=== PATIENT | female | born 1955 | race Caucasian/White ===

== ENCOUNTER → 2017-12-14 | Outpatient (CLI) | payer OTHER ==
--- NOTE | 2017-12-17 10:28 | MM ---
Reason for exam: screening (asymptomatic). Last mammogram was performed 2 years and 9 months ago. History: Patient is postmenopausal. Family history of premenopausal breast cancer in sister and breast cancer in maternal aunt. Physical Findings: A clinical breast exam by your physician is recommended on an annual basis and results should be correlated with mammographic findings. MG Screening Mammo w CAD Bilateral CC and MLO view(s) were taken. Prior study comparison: March 08, 2015, bilateral MG screening mammo w CAD. October 07, 2012, bilateral digital screening mammo w/CAD. There are scattered fibroglandular densities. No suspicious abnormality. No significant changes when compared with prior studies. ASSESSMENT: Negative, BI-RAD 1 RECOMMENDATION: Routine screening mammogram of both breasts in 1 year.
== END | disposition home or self-care (01) ==
LOC: RADMAMWWP 08:43
PROVIDERS: ATTEND Family Medicine
DX: Z12.31 Encounter for screening mammogram for malignant neoplasm of breast (principal)
CPT/HCPCS: 77067

== ENCOUNTER → 2022-10-16 | Outpatient (CLI) | payer MEDICARE ==
--- NOTE | 2022-10-18 06:50 | US ---
EXAMINATION TYPE: US arterial LE single level DATE OF EXAM: 10/16/2022 1:01 PM CLINICAL HISTORY: M79.89, M79.671, M79.672 PAIN IN RT FOOT,PAIN IN LT FOOT. Bilateral foot pain. Both feet feel cold. History of: Smoker: Current Smoker Hypertension: No Diabetic: No Hyperlipidemia: No TIA/CVA: No Previous Vascular Surgery: No CAD: No VT: No Vascular Ulcers: No Claudication: Gangrene: No Doppler Waveforms: Right: Multiphasic Left: Multiphasic Pulse Volume Recording: Pressure Gradients: Right Brachial Pressure: 191 Left Brachial Pressure: 189 Ankle-Brachial Indices: Right: 1.05 Left: 1.07 Toe Brachial Indices: Right: 0.45 Left: 0.47 IMPRESSION: Bilateral diminished TBI consistent with at least mild peripheral arterial disease in th e bilateral feet. Further workup and follow-up advised.
== END | disposition home or self-care (01) ==
LOC: RADUSWWP 11:56
PROVIDERS: ATTEND Family Medicine
DX: M79.89 Other specified soft tissue disorders (principal); M79.671 Pain in right foot; M79.672 Pain in left foot
CPT/HCPCS: 93922

== ENCOUNTER → 2022-11-27 | Outpatient (CLI) | payer MEDICARE ==
--- NOTE | 2022-11-28 19:24 | MM ---
Reason for Exam: Screening (asymptomatic). Last mammogram was performed 4 year(s) and 11 month(s) ago. Patient History: Menarche at age 11. First Full-Term at age 17. Postmenopausal. Patient has history of breast feeding. Maternal aunt had breast cancer. Sister had breast cancer. Risk Values: Imani 5 year model risk: 3.2%. NCI Lifetime model risk: 10.1%. Prior Study Comparison: 10/07/2012 Bilateral Screening Mammogram, [facility]. 03/08/2015 Bilateral Screening Mammogram, [facility]. 12/14/2017 Bilateral Screening Mammogram, [facility]. Tissue Density: There are scattered fibroglandular densities. Findings: Analyzed By CAD. There is no suspicious group of microcalcifications or new suspicious mass in either breast. Overall Assessment: Benign, BI-RAD 2 Management: Screening Mammogram of both breasts in 1 year. See note regarding patient's elevated Imani score below. Patient should continue monthly self-breast exams. A clinical breast exam by your physician is recommended on an annual basis. This exam should not preclude additional follow-up of suspicious palpable abnormalities. Note on Imani scores and lifetime risk: 1. A Imani score greater than 3% is considered moderate risk. If this is the case, consider specialist referral to assess eligibility for a risk reducing agent. 2. If overall lifetime risk for the development of breast cancer is 20% or higher, the patient may qualify for future screening with alternating mammogram and breast MRI. Electronically signed and approved by: Alek Jo M.D. Radiologist
== END | disposition home or self-care (01) ==
LOC: RADMAMWWP 16:22
PROVIDERS: ATTEND Family Medicine
DX: Z12.31 Encounter for screening mammogram for malignant neoplasm of breast (principal); Z78.0 Asymptomatic menopausal state; Z80.3 Family history of malignant neoplasm of breast
CPT/HCPCS: 77063; 77067

== ENCOUNTER → 2022-12-07 | Outpatient (CLI) | payer MEDICARE ==
--- NOTE | 2022-12-07 12:48 | CTL ---
EXAMINATION TYPE: CT Low Dose Lung DATE OF EXAM: 12/07/2022 9:33 AM CLINICAL INDICATION:Female, 67 years old with history of Z87.891 PERSONAL HISTORY OF NICOTINE DEPENDE NCE; smoker , history of tobacco use. COMPARISON: None TECHNIQUE: Multiple axial non-contrast scans were obtained from approximately the lung apices through the upper abdomen. Coronal and sagittal reformatted images were obtained. Low dose technique was uti lized. CT DLP: 129.7 mGycm, Automated exposure control for dose reduction was used. CT Contrast: Contrast used: None Oral contrast used: None FINDINGS: ======== Lack of intravenous contrast and low dose technique limits the evaluation of the vascular and soft ti ssue structures. LUNGS: No evidence of pulmonary fibrosis. No evidence of focal consolidation, pneumothorax or pleural effusion. Azygous fissure noted. Mild centrilobular emphysema changes. Right posterior Bochdalek her jadon. Nodules: RUL: Subpleural nodule 4 mm image 55 series 3. 2 mm image 65. 2 mm image 115. RML: None. RLL: 2 mm image 1 08/17/2013 series 3 YESICA: 4 mm image 112 series 3. Suspected right intrafissural lymph node versus scarring series 3 i mage 80. Intrafissural lymph node also present on image 179 LLL: None. AIRWAY: Patent and unremarkable. HEART: Size within normal limits. Coronary artery atherosclerosis. MEDIASTINUM: No gross evidence of adenopathy. VASCULATURE: No aortic aneurysm. Atherosclerosis of the arterial vasculature. MUSCULOSKELETAL: Mild disc degeneration changes are present throughout the thoracolumbar spine. SOFT TISSUES/LYMPH NODES: Unremarkable. LOWER NECK: No significant findings. UPPER ABDOMEN: Cholecystectomy clips are present.. IMPRESSION: 1. No clinically significant pulmonary nodules. 2. Mild emphysema changes. CT LUNG RAD AND CT CHEST RECOMMENDATION: Lung-Rad 2 Benign Appearance or Behavior: Continue annual sc reening with LDCT in 12 months. S Modifier (other clinically significant findings): None Recommend smoking cessation (if current smoker), or continuation of smoking cessation (if prior smoke r). Annual screening for lung cancer with low-dose computed tomography is recommended in adults ages 55 to 77 years who have a 30 pack-year smoking history and currently smoke or have quit within the pa st 15 years. Screening should be discontinued once a person has not smoked for 15 years or develops a health problem that substantially limits life expectancy or the ability or willingness to have curat olga lung surgery. Lung rads 2021 [email or web address]
== END | disposition home or self-care (01) ==
LOC: RADCTMAIN 09:15
PROVIDERS: ATTEND Family Medicine
DX: Z12.2 Encounter for screening for malignant neoplasm of respiratory organs (principal); J43.9 Emphysema, unspecified; F17.210 Nicotine dependence, cigarettes, uncomplicated
CPT/HCPCS: 71271

== ENCOUNTER 2023-02-22 15:45 | Observation (INO) | payer MEDICARE ==
[2023-02-22] MEDS ORDERED: ASPIRIN 81 MG PO STA (16:09)
[2023-02-22] MEDS ORDERED: NITROGLYCERIN OINT 1 INCH/GM PACKET TOPICAL STA (16:09)
--- NOTE | 2023-02-22 16:12 | ED ---
General Adult HPI - General Chief complaint: Chest Pain Stated complaint: Chest Pain over 24hrs, Swollen Hands Time Seen by Provider: 02/22/23 15:55 Source: patient, RN notes reviewed, old records reviewed Mode of arrival: wheelchair Limitations: no limitations - History of Present Illness Initial comments: This is a 67-year-old female presents emergency Department complaining that last night she had pain in her arm and also pain or left middle finger. Patient states today she decided come into the hospital because of the pain in her finger and arm and then she started experiencing significant chest pain that she describes as a heaviness. Patient states associated with that was shortness of breath particularly when she tried to walk into the ER. Patient denies any diaphoretic episodes patient denies any nausea. Patient denies any abdominal pain patient denies any vomiting or diarrhea recently. Patient denies any headache patient denies numbness weakness. Patient denies any lightheadedness or dizziness - Related Data Home Medications Medication Instructions Recorded Confirmed Acetaminophen Tab [Tylenol Tab] 500 mg PO BID 02/22/23 02/22/23 Atorvastatin [Lipitor] 10 mg PO HS 02/22/23 02/22/23 Ibuprofen [Motrin Ib] 200 mg PO BID 02/22/23 02/22/23 diphenhydrAMINE [Benadryl] 25 mg PO BID 02/22/23 02/22/23 Allergies Allergy/AdvReac Type Severity Reaction Status Date / Time No Known Allergies Allergy Verified 02/22/23 16:47 Review of Systems ROS Statement: Those systems with pertinent positive or pertinent negative responses have been documented in the HPI. ROS Other: All systems not noted in ROS Statement are negative. Past Medical History Past Medical History: Hyperlipidemia History of Any Multi-Drug Resistant Organisms: None Reported Past Surgical History: Section, Cholecystectomy Additional Past Surgical History / Comment(s): rt adrenal gland Past Psychological History: No Psychological Hx Reported Smoking Status: Current every day smoker Past Alcohol Use History: None Reported Past Drug Use History: None Reported General Exam - General Exam Comments Initial Comments: GENERAL: Patient is well-developed and well-nourished. Patient is nontoxic and well- hydrated and is in mild distress. ENT: Neck is soft and supple. No significant lymphadenopathy is noted. Oropharynx is clear. Moist mucous membranes. Neck has full range of motion without eliciting any pain. EYES: The sclera were anicteric and conjunctiva were pink and moist. Extraocular movements were intact and pupils were equal round and reactive to light. Eyelids were unremarkable. PULMONARY: Unlabored respirations. Good breath sounds bilaterally. No audible rales rhonchi or wheezing was noted. CARDIOVASCULAR: There is a regular rate and rhythm without any murmurs gallops or rubs. ABDOMEN: Soft and nontender with normal bowel sounds. SKIN: Skin is clear with no lesions or rashes and otherwise unremarkable. NEUROLOGIC: Patient is alert and oriented x3. Cranial nerves II through XII are grossly intact. Motor and sensory are also intact. Normal speech, volume and content. Symmetrical smile. MUSCULOSKELETAL: Normal extremities with adequate strength and full range of motion. Patient has tenderness in the PIP joint of the third finger on the left hand and is mildly erythematous LYMPHATICS: No significant lymphadenopathy is noted PSYCHIATRIC: Normal psychiatric evaluation. Limitations: no limitations Course Vital Signs 02/22/23 02/22/23 15:48 18:27 Temperature 98.7 F Pulse Rate 94 88 Respiratory 20 20 Rate Blood Pressure 159/74 113/73 O2 Sat by Pulse 95 94 L Oximetry Medical Decision Making - Medical Decision Making EKG is interpreted by myself. EKG shows sinus rhythm at 83 bpm GA interval 261 66 QT interval 340 QTC is 383. Patient's EKG shows no ST segment elevation or depression. Was pt. sent in by a medical professional or institution ([facility]dy, REPL[employer]ISHMENT BU[employer]ER, urgent care, hospital, or skilled nursing...) When possible be specific @ -No Did you speak to anyone other than the patient for history (EMS, parent, family, police, friend...)? What history was obtained from this source @ -No Did you review nursing and triage notes (agree or disagree)? Why? @ -I reviewed and agree with nursing and triage notes Were old charts reviewed (outside hosp., previous admission, EMS record, old EKG, old radiological studies, urgent care reports/EKG's, skilled nursing records)? Report findings @ -I reviewed prior labs in prior charts Differential Diagnosis (chest pain, altered mental status, abdominal pain women, abdominal pain men, vaginal bleeding, weakness, fever, dyspnea, syncope, headache, dizziness, GI bleed, back pain, seizure, CVA, palpatations, mental health, musculoskeletal)? @ -Differential Chest Pain: Stable Angina, Unstable Angina, STEMI, NSTEMI Aortic Dissection, Pneumothorax, Musculoskeletal, Esophageal Spasm GERD, Cholecystitis, Pancreatitis, Zoster, this is not meant to be an all-inclusive list. EKG interpreted by me (3pts min.). @ -As above X-rays interpreted by me (1pt min.). @ -Chest x-ray shows no acute abnormality CT interpreted by me (1pt min.). @ -None done U/S interpreted by me (1pt. min.). @ -None done What testing was considered but not performed or refused? (CT, X-rays, U/S, labs)? Why? @ -None What meds were considered but not given or refused? Why? @ -None Did you discuss the management of the patient with other professionals ( professionals i.e. , PA, REPLENISHMENT BUYER, lab, RT, psych nurse, social director, cio, teacher, ground intelligence officer, case management coordinator)? Give summary @ -Dr. joseph accept the patient Was smoking cessation discussed for >3mins.? @ -No Was critical care preformed (if so, how long)? @ -No Were there social determinants of health that impacted care today? How? (Homelessness, low income, unemployed, alcoholism, drug addiction, transportation, low edu. Level, literacy, decrease access to med. care, fdc, rehab)? @ -No Was there de-escalation of care discussed even if they declined (Discuss DNR or withdrawal of care, Hospice)? DNR status @ -No What co-morbidities impacted this encounter? (DM, HTN, Smoking, COPD, CAD, Cancer, CVA, ARF, Chemo, Hep., AIDS, mental health diagnosis, sleep apnea, morbid obesity)? @ -None Was patient admitted / discharged? Hospital course, mention meds given and route, prescriptions, significant lab abnormalities, going to OR and other pertinent info. @ -Patient remained chest pain-free throughout her ED course labs are normal x- ray was normal I spoke with Dr. joseph he agreed to accept the patient I admitted the patient I consult cardiology I wrote admitting orders Undiagnosed new problem with uncertain prognosis? @ -No Drug Therapy requiring intensive monitoring for toxicity (Heparin, Nitro, Insulin, Cardizem)? @ -No Were any procedures done? @ -No Diagnosis/symptom? @ -Chest pain Acute, or Chronic, or Acute on Chronic? @ -Acute Uncomplicated (without systemic symptoms) or Complicated (systemic symptoms)? @ -Complicated Side effects of treatment? @ -No Exacerbation, Progression, or Severe Exacerbation? @ -No Poses a threat to life or bodily function? How? (Chest pain, [place], [place], pneumonia, PE, COPD, DKA, ARF, appy, cholecystitis, CVA, Diverticulitis, Homicidal, Suicidal, threat to staff... and all critical care pts) @ -Yes this could lead to end organ dysfunction and possibly - Lab Data Result diagrams: 02/22/23 16:21 02/22/23 16:21 Lab Results 02/22/23 02/22/23 02/22/23 Range/Units 16:21 16:21 16:21 WBC 10.8 H (3.8-10.6) k/uL RBC 4.33 (3.80-5.40) m/uL Hgb 14.5 (11.4-16.0) gm/dL Hct 41.6 (34.0-46.0) % MCV 96.0 (80.0-100.0) fL MCH 33.5 (25.0-35.0) pg MCHC 34.9 (31.0-37.0) g/dL RDW 12.5 (11.5-15.5) % Plt Count 147 L (150-450) k/uL MPV 8.6 Neutrophils % 80 % Lymphocytes % 12 % Monocytes % 6 % Eosinophils % 1 % Basophils % 0 % Neutrophils # 8.6 H (1.3-7.7) k/uL Lymphocytes # 1.3 (1.0-4.8) k/uL Monocytes # 0.6 (0-1.0) k/uL Eosinophils # 0.1 (0-0.7) k/uL Basophils # 0.0 (0-0.2) k/uL PT 9.9 (9.0-12.0) sec INR 0.9 (<1.2) APTT 22.4 (22.0-30.0) sec Sodium 134 L (137-145) mmol/L Potassium 4.2 (3.5-5.1) mmol/L Chloride 101 (98-107) mmol/L Carbon Dioxide 25 (22-30) mmol/L Anion Gap 8 mmol/L BUN 8 (7-17) mg/dL Creatinine 0.70 (0.52-1.04) mg/dL Est GFR (CKD-EPI)AfAm >90 (>60 ml/min/1.73 sqM) Est GFR (CKD-EPI)NonAf 89 (>60 ml/min/1.73 sqM) Glucose 109 H (74-99) mg/dL Calcium 9.2 (8.4-10.2) mg/dL Magnesium 2.0 (1.6-2.3) mg/dL Total Bilirubin 0.8 (0.2-1.3) mg/dL AST 24 (14-36) U/L ALT 24 (4-34) U/L Alkaline Phosphatase 100 (38-126) U/L Troponin I (0.000-0.034) ng/mL Total Protein 6.7 (6.3-8.2) g/dL Albumin 3.9 (3.5-5.0) g/dL 02/22/23 Range/Units 16:21 WBC (3.8-10.6) k/uL RBC (3.80-5.40) m/uL Hgb (11.4-16.0) gm/dL Hct (34.0-46.0) % MCV (80.0-100.0) fL MCH (25.0-35.0) pg MCHC (31.0-37.0) g/dL RDW (11.5-15.5) % Plt Count (150-450) k/uL MPV Neutrophils % % Lymphocytes % % Monocytes % % Eosinophils % % Basophils % % Neutrophils # (1.3-7.7) k/uL Lymphocytes # (1.0-4.8) k/uL Monocytes # (0-1.0) k/uL Eosinophils # (0-0.7) k/uL Basophils # (0-0.2) k/uL PT (9.0-12.0) sec INR (<1.2) APTT (22.0-30.0) sec Sodium (137-145) mmol/L Potassium (3.5-5.1) mmol/L Chloride (98-107) mmol/L Carbon Dioxide (22-30) mmol/L Anion Gap mmol/L BUN (7-17) mg/dL Creatinine (0.52-1.04) mg/dL Est GFR (CKD-EPI)AfAm (>60 ml/min/1.73 sqM) Est GFR (CKD-EPI)NonAf (>60 ml/min/1.73 sqM) Glucose (74-99) mg/dL Calcium (8.4-10.2) mg/dL Magnesium (1.6-2.3) mg/dL Total Bilirubin (0.2-1.3) mg/dL AST (14-36) U/L ALT (4-34) U/L Alkaline Phosphatase (38-126) U/L Troponin I <0.012 (0.000-0.034) ng/mL Total Protein (6.3-8.2) g/dL Albumin (3.5-5.0) g/dL Disposition Clinical Impression: Chest pain Disposition: ADMITTED IP TO THIS HOSP Referrals: Charley Hines MD [Primary Care Provider] - 1-2 days Time of Disposition: 18:46
[2023-02-22 16:36] LABS: Basophils % (A) 0 %; Eosinophils # (A) 0.1 k/uL (0-0.7); Eosinophils % (A) 1 %; HCT 41.6 % (34.0-46.0); HGB 14.5 gm/dL (11.4-16.0); Lymphocytes # (A) 1.3 k/uL (1.0-4.8); Lymphocytes % (A) 12 %; MCH 33.5 pg (25.0-35.0); MCHC 34.9 g/dL (31.0-37.0); Mean Platelet Volume 8.6; Monocytes # (A) 0.6 k/uL (0-1.0); Monocytes % (A) 6 %; Neutrophils # (A) 8.6 k/uL (1.3-7.7); Neutrophils % (A) 80 %; Platelet Count 147 k/uL (150-450); RBC 4.33 m/uL (3.80-5.40); RDW 12.5 % (11.5-15.5); WBC 10.8 k/uL (3.8-10.6)
[2023-02-22 16:51] LABS: ALT 24 U/L (4-34); AST 24 U/L (14-36); African American GFR (CKD) >90 (>60 ml/min/1.73 sqM); Albumin 3.9 g/dL (3.5-5.0); Alkaline Phosphatase 100 U/L (38-126); Anion Gap 8 mmol/L; Blood Urea Nitrogen 8 mg/dL (7-17); Calcium 9.2 mg/dL (8.4-10.2); Carbon Dioxide 25 mmol/L (22-30); Chloride 101 mmol/L (98-107); Glucose 109 mg/dL (74-99); Non-African American GFR(CKD) 89 (>60 ml/min/1.73 sqM); Potassium 4.2 mmol/L (3.5-5.1); Sodium 134 mmol/L (137-145); Total Bilirubin 0.8 mg/dL (0.2-1.3); Total Protein 6.7 g/dL (6.3-8.2)
[2023-02-22 17:01] LABS: INR 0.9 (<1.2); Partial Thromboplastin Time 22.4 sec (22.0-30.0); Prothrombin Time 9.9 sec (9.0-12.0)
--- NOTE | 2023-02-22 17:12 | XR ---
EXAMINATION TYPE: XR chest 2V DATE OF EXAM: 02/22/2023 COMPARISON: 07/26/2013 INDICATION: Chest pain TECHNIQUE: Frontal and lateral views of the chest are obtained. FINDINGS: The heart size is normal. The pulmonary vasculature is normal. The lungs are clear. IMPRESSION: 1. No acute pulmonary process.
[2023-02-22] MEDS ORDERED: NITROGLYCERIN SL TABS 0.4 MG TAB SUBLINGUAL PRN (18:46)
[2023-02-22] MEDS ORDERED: diphenhydrAMINE 25 MG CAP PO PRN (19:00)
[2023-02-22] MEDS ORDERED: ACETAMINOPHEN TAB 500 MG TAB PO PRN (19:00)
[2023-02-22] MEDS: HEPARIN SODIUM,PORCINE 5,000 UNIT/ML 1 ML VIAL SQ SCH (20:46)
[2023-02-22] MEDS: FAMOTIDINE 20 MG/2 ML VIAL IV SCH (20:46)
[2023-02-22 20:58] VITALS: RESP 17
[2023-02-22] MEDS ORDERED: ATORVASTATIN 10 MG TAB PO SCH (21:00)
[2023-02-23] MEDS: NITROGLYCERIN OINT 1 INCH/GM PACKET TOPICAL SCH ×2 (01:11→06:13)
[2023-02-23] MEDS: HEPARIN SODIUM,PORCINE 5,000 UNIT/ML 1 ML VIAL SQ SCH (07:53)
[2023-02-23] MEDS: FAMOTIDINE 20 MG/2 ML VIAL IV SCH (07:53)
[2023-02-23 08:43] LABS: Chol/HDL Ratio 2.75 Ratio; LDL Cholesterol,Calculated 85.1 mg/dL (0.0-131.0)
[2023-02-23] MEDS ORDERED: ASPIRIN 325 MG TAB PO SCH (09:00)
--- NOTE | 2023-02-23 10:30 | P.CRDCN ---
History of Present Illness History of present illness: HISTORY OF PRESENT ILLNESS: This is a 67-year-old female with a past medical history significant for hyperlipidemia. 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 We have been asked to see the patient in consultation for chest pain. Patient examined at the bedside. patient states she has been having swelling and throbbing in her hands and fingers for the past 2 days. She states she is having trouble opening up a bottle or a lid. She states she called her primary care physician who directed her to come to the emergency room. She states while she was driving here she began to have chest pain and shortness of breath. She states her symptoms were intermittent. When she came to the emergency room she was given nitro with relief of her symptoms. She states she has had no further episodes of chest pain or pressure. She currently denies shortness of breath. Vital signs are stable. * EKG reveals sinus mechanism with no signs of acute ischemia * Chest xray negative for acute process * Laboratory data: WBC 10.8. Hemoglobin 14.5. platelet count 147. Sodium 134. Potassium 4.3. BUN 8. Creatinine 0.70. Troponin negative 3 * Current home cardiac medications include atorvastatin 10 mg at night REVIEW OF SYSTEMS: At the time of my exam: CONSTITUTIONAL: Denies fever or chills. HEENT: Denies blurred vision, vision changes, or eye pain. Denies hemoptysis CARDIOVASCULAR: Denies chest pain. Denies orthopnea. Denies PND. Denies palpitations RESPIRATORY: Denies shortness of breath. GASTROINTESTINAL: Denies abdominal pain. Denies nausea or vomiting. HEMATOLOGIC: Denies bleeding disorders. GENITOURINARY: Denies any blood in urine. SKIN: Denies pruitis. Denies rash. PHYSICAL EXAM: VITAL SIGNS: Reviewed. GENERAL: Well-developed in no acute distress. HEENT: Head is normocephalic. Pupils are equal, round. Sclerae anicteric. Mucous membranes of the mouth are moist. Neck supple. No JVD or thyromegaly LUNGS: Respirations even and unlabored. Lungs essentially clear to auscultation bilaterally. HEART: Regular rate and rhythm. S1 and S2 heard. ABDOMEN: Soft. Nondistended. Nontender. EXTREMITIES: Normal range of motion. No clubbing or cyanosis. Peripheral pulses intact. No lower extremity edema NEUROLOGIC: Awake and alert. Oriented x 3. ASSESSMENT: Swelling and throbbing of bilateral hands and fingers, 2 days Chest pain, troponins negative 3 Hyperlipidemia PLAN: An acute coronary event has been ruled out Increase atorvastatin to 20 mg at night Add aspirin 81 mg daily Obtain 2-D echo to assess cardiac structure and function 2-D echo does not reveal any significant abnormalities, patient may be discharged home today from a cardiac standpoint Nurse practitioner note has been reviewed by physician. Signing provider agrees with the documented findings, assessment, and plan of care. 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" History of Any Multi-Drug Resistant Organisms: None Reported Past Surgical History: Section, Cholecystectomy Additional Past Surgical History / Comment(s): rt adrenal gland removal Past Anesthesia/Blood Transfusion Reactions: No Reported Reaction Past Psychological History: No Psychological Hx Reported Smoking Status: Current every day smoker Past Alcohol Use History: None Reported Past Drug Use History: None Reported Medications and Allergies Home Medications Medication Instructions Recorded Confirmed Type Acetaminophen Tab [Tylenol Tab] 500 mg PO BID 02/22/23 02/22/23 History Atorvastatin [Lipitor] 10 mg PO HS 02/22/23 02/22/23 History Ibuprofen [Motrin Ib] 200 mg PO BID 02/22/23 02/22/23 History diphenhydrAMINE [Benadryl] 25 mg PO BID 02/22/23 02/22/23 History Allergies Allergy/AdvReac Type Severity Reaction Status Date / Time No Known Allergies Allergy Verified 02/22/23 16:47 Physical Exam Vitals: Vital Signs Temp Pulse Pulse Resp BP BP Pulse Ox 02/23/23 07:50 97.9 F 82 17 112/69 95 02/23/23 03:46 98.3 F 83 17 140/65 95 02/23/23 02:00 83 02/23/23 00:09 97.9 F 84 17 135/63 96 02/22/23 22:37 84 02/22/23 20:57 98.5 F 84 17 125/56 98 02/22/23 20:05 98.2 F 69 16 124/68 98 02/22/23 18:27 88 20 113/73 94 L 02/22/23 15:48 98.7 F 94 20 159/74 95 Intake and Output 02/22/23 02/23/23 02/23/23 22:59 06:59 14:59 Other: Voiding Method Toilet Toilet Toilet # Voids 1 2 Weight 102.058 kg 101.6 kg Results 02/22/23 16:21 02/22/23 16:21 Cardiac Enzymes 02/22/23 02/22/23 02/22/23 Range/Units 16:21 16:21 19:06 AST 24 (14-36) U/L Troponin I <0.012 <0.012 (0.000-0.034) ng/mL 02/22/23 Range/Units 22:35 AST (14-36) U/L Troponin I <0.012 (0.000-0.034) ng/mL Coagulation 02/22/23 Range/Units 16:21 PT 9.9 (9.0-12.0) sec APTT 22.4 (22.0-30.0) sec Lipids 02/22/23 Range/Units 16:21 Triglycerides 86.50 (0.00-149.00) mg/dL Cholesterol 161.00 (0.00-200.00) mg/dL HDL Cholesterol 58.60 (40.00-60.00) mg/dL Cholesterol/HDL Ratio 2.75 Ratio CBC 02/22/23 Range/Units 16:21 WBC 10.8 H (3.8-10.6) k/uL RBC 4.33 (3.80-5.40) m/uL Hgb 14.5 (11.4-16.0) gm/dL Hct 41.6 (34.0-46.0) % Plt Count 147 L (150-450) k/uL Comprehensive Metabolic Panel 02/22/23 Range/Units 16:21 Sodium 134 L (137-145) mmol/L Potassium 4.2 (3.5-5.1) mmol/L Chloride 101 (98-107) mmol/L Carbon Dioxide 25 (22-30) mmol/L BUN 8 (7-17) mg/dL Creatinine 0.70 (0.52-1.04) mg/dL Glucose 109 H (74-99) mg/dL Calcium 9.2 (8.4-10.2) mg/dL AST 24 (14-36) U/L ALT 24 (4-34) U/L Alkaline Phosphatase 100 (38-126) U/L Total Protein 6.7 (6.3-8.2) g/dL Albumin 3.9 (3.5-5.0) g/dL Current Medications Generic Name Dose Route Start Last Admin Trade Name Marquisq PRN Reason Stop Dose Admin Acetaminophen 500 mg 02/22/23 19:00 Acetaminophen Tab 500 Mg Tab PO BID PRN Pain Aspirin 325 mg 02/23/23 09:00 02/23/23 07:53 Aspirin 325 Mg Tab PO 325 mg DAILY JUSTO Administration Atorvastatin Calcium 10 mg 02/22/23 21:00 02/22/23 20:46 Atorvastatin 10 Mg Tab PO 10 mg HS JUSTO Administration Diphenhydramine HCl 25 mg 02/22/23 19:00 Diphenhydramine 25 Mg Cap PO BID PRN Itching Famotidine 20 mg 02/22/23 21:00 02/23/23 07:53 Famotidine 20 Mg/2 Ml Vial IV 20 mg Q12HR JUSTO Administration Heparin Sodium (Porcine) 5,000 unit 02/22/23 21:00 02/23/23 07:53 Heparin Sodium,Porcine 5,000 Unit/Ml 1 Ml Vial SQ Not Given Q12HR [facility] Nitroglycerin 0.4 mg 02/22/23 18:46 Nitroglycerin Sl Tabs 0.4 Mg Tab SUBLINGUAL Q5M PRN Chest Pain Nitroglycerin 1 inch 02/23/23 00:00 02/23/23 06:13 Nitroglycerin Oint 1 Inch/Gm Packet TOPICAL Not Given Q6HR [facility] Intake and Output 02/22/23 02/23/23 02/23/23 22:59 06:59 14:59 Other: Voiding Method Toilet Toilet Toilet # Voids 1 2 Weight 102.058 kg 101.6 kg 02/22/23 16:21 02/22/23 16:21
--- NOTE | 2023-02-23 11:29 | CA ---
Transthoracic Echo Report Name: Nory Lewis Age: 67 Gender: F : 1955 Exam Date: 02/23/2023 10:32 Exam Location: [facility] Ht (in): 64 Wt (lb): 223 Ordering Physician: Michelle Benitez Attending/Referring Phys: [id number], Eli Change Manager Nasrin Brantley RDCS Procedure CPT: Indications: LV function, CP Cardiac Hx: Technical Quality: Good Contrast 1: Total Dose (mL): Contrast 2: Total Dose (mL): MEASUREMENTS (Male / Female) Normal Values 2D ECHO LV Diastolic Diameter PLAX 4.3 cm 4.2 - 5.9 / 3.9 - 5.3 cm LV Systolic Diameter PLAX 2.7 cm IVS Diastolic Thickness 1.0 cm 0.6 - 1.0 / 0.6 - 0.9 cm LVPW Diastolic Thickness 1.0 cm 0.6 - 1.0 / 0.6 - 0.9 cm LV Relative Wall Thickness 0.5 RV Internal Dim ED PLAX 2.8 cm LA Systolic Diameter LX 3.4 cm 3.0 - 4.0 / 2.7 - 3.8 cm LV Diastolic Volume MOD 4C 76.7 cm??? LV Systolic Volume MOD 4C 26.2 cm??? LV Ejection Fraction MOD 4C 65.8 % LV Cardiac Index MOD 4C 1639.1 cm???/min???m??? LV Diastolic Length 4C 8.0 cm LV Systolic Length 4C 5.8 cm LV Diastolic Volume MOD 2C 89.6 cm??? LV Systolic Volume MOD 2C 21.9 cm??? LV Ejection Fraction MOD 2C 75.6 % LV Cardiac Index MOD 2C 2200.0 cm???/min???m??? LV Diastolic Length 2C 8.3 cm LV Systolic Length 2C 6.3 cm LA Volume 43.3 cm??? 18 - 58 / 22 - 52 cm??? M-MODE Aortic Root Diameter MM 3.5 cm MV E Point Septal Separation 0.4 cm AV Cusp Separation MM 2.0 cm DOPPLER AV Peak Velocity 147.4 cm/s AV Peak Gradient 8.7 mmHg MV Area PHT 2.8 cm??? Mitral E Point Velocity 109.5 cm/s Mitral A Point Velocity 111.1 cm/s Mitral E to A Ratio 1.0 MV Deceleration Time 275.2 ms MV E' Velocity 6.7 cm/s Mitral E to MV E' Ratio 16.3 TR Peak Velocity 265.6 cm/s TR Peak Gradient 28.2 mmHg Right Ventricular Systolic Press 33.2 mmHg FINDINGS Left Ventricle Left ventricular ejection fraction is estimated at 55-60 %. Left ventricular cavity size normal. Mildly increased posterior wall thickness. Right Ventricle Mild right ventricular dilatation. Right ventricular systolic pressure within normal limits. Right Atrium Normal right atrial size. Left Atrium Normal left atrial size. Mitral Valve Structurally normal mitral valve. No mitral stenosis, regurgitation or prolapse. Aortic Valve Trileaflet aortic valve. No aortic valve stenosis or regurgitation. Tricuspid Valve Structurally normal tricuspid valve. Mild tricuspid regurgitation. Pulmonic Valve Pulmonic valve not well visualized. Pericardium Normal pericardium. No pericardial effusion. Aorta Normal size aortic root and proximal ascending aorta. CONCLUSIONS Previewed by: Dr. Jay Hermosillo MD (Electronically Signed) Final Date: 23 February 2023 11:28
[2023-02-23 12:14] VITALS: BP 139/78; PULSE 87; TEMP 98.6
[2023-02-23] MEDS ORDERED: methylPREDNISolone SOD SUCCIN 40 MG in SODIUM CHLORIDE 0.9% 100 ML IVPB STA (13:25)
[2023-02-23] MEDS: methylPREDNISolone SOD SUCCI 40 MG/ML 1 ML VIAL IV STA ×2 (13:31→13:45)
--- NOTE | 2023-02-23 15:21 | CT ---
EXAMINATION TYPE: CT chest angio for PE DATE OF EXAM: 02/23/2023 COMPARISON: 12/07/2022 HISTORY: 67-year-old female shortness of breath, dyspnea, FAN TECHNIQUE: Contiguous axial scanning of the chest performed with IV Contrast, patient injected with 1 00 mL of Isovue 370. Coronal/sagittal MIP reconstructions performed. CT DLP: 489.7 mGycm Automated exposure control for dose reduction was used. FINDINGS: Heart normal size without pericardial effusion. No reflux of contrast into the hepatic veins. Portable and ectasia ascending aorta 3.6 cm. Mild atherosclerotic changes aortic arch with convention al arch vessel branching anatomy. Mild to moderate atherosclerotic plaque and calcification descendin g thoracic aorta. No thoracic lymphadenopathy by CT size criteria. There is breathing motion artifact limiting the evaluation. No definite pulmonary embolus is seen tho ugh some of the segmental and more distal arterial branches are very limited. Normal variant azygous fissure. Stable 7 mm nodule along the posterior left upper lung along the major fissure suggestive of an intra fissural lymph node. Mild diffuse bronchial wall thickening. No consolidation or pleural effusion. Borderline fusiform aneurysm infrarenal abdominal aorta up to 3.0 cm. Cholecystectomy clips. Bones: Moderate degenerative disc disease mid thoracic spine. IMPRESSION: 1. BREATHING MOTION ARTIFACT LIMITING THE ASSESSMENT FOR PULMONARY PLUS. NO DEFINITE PULMONARY EMBOLU S IS SEEN. 2. BRONCHIAL WALL THICKENING SUGGESTS BRONCHITIS OR CHRONIC ASTHMA. 3. INCIDENTAL: BORDERLINE INFRARENAL ABDOMINAL AORTIC ANEURYSM AT 3.0 CM. APPROPRIATE CLINICAL FOLLOW -UP RECOMMENDED.
--- NOTE | 2023-02-23 15:29 | P.HPIM ---
History of Present Illness H&P Date: 02/23/23 History of present illness; patient is 67-year-old lady with past medical histor y significant for hyperlipidemia presented the ER because of chest pain. Patient stated that she was all right yesterday which started noticing pain in her left arm and left middle finger. That pain was followed by chest pain that was central in location, felt like heaviness, no aggravating or relieving factors associated with this chest pain. Patient was complaining of shortness of breath on exertion, especially on walking. Because of this chest pain or shortness of breath, patient became concerned and came to come to the ER. Denies any palpitations. Denies orthopnea or PND. Denies swelling of feet. Initial lab work done in the ER showed WBC 10.8, hemoglobin 14.5, platelet count 147, sodium 134, potassium 4.2, BUN 8, creatinine 0.70, troponin 0.012. Cholesterol 161, LDL 81 EKG done in the ER showed ventricle rate of 83, no ST segment elevation or T- wave inversion seen. Chest x-ray done in the ER no acute cardiac process Patient admitted to medicine service REVIEW OF SYSTEMS: CONSTITUTIONAL: No fever, no malaise, no fatigue. HEENT: No recent visual problems or hearing problems. Denied any sore throat. CARDIOVASCULAR: As mentioned in HPI PULMONARY: As mentioned in HPI GASTROINTESTINAL: No diarrhea, no nausea, no vomiting, no abdominal pain. NEUROLOGICAL: No headaches, no weakness, no numbness. HEMATOLOGICAL: Denies any bleeding or petechiae. GENITOURINARY: Denies any burning micturition, frequency, or urgency. MUSCULOSKELETAL/RHEUMATOLOGICAL: Left wrist pain ENDOCRINE: Denies any polyuria or polydipsia. The rest of the 14-point review of systems is negative. PHYSICAL EXAMINATION: GENERAL: The patient is alert and oriented x3, not in any acute distress. Well developed, well nourished. HEENT: Pupils are round and equally reacting to light. EOMI. No scleral icterus. No conjunctival pallor. Normocephalic, atraumatic. No pharyngeal erythema. No thyromegaly. CARDIOVASCULAR: S1 and S2 present. No murmurs, rubs, or gallops. PULMONARY: Chest is clear to auscultation, no wheezing or crackles. ABDOMEN: Soft, nontender, nondistended, normoactive bowel sounds. No palpable organomegaly. MUSCULOSKELETAL: Left wrist swelling EXTREMITIES: No cyanosis, clubbing, or pedal edema. NEUROLOGICAL: Gross neurological examination did not reveal any focal deficits. SKIN: No rashes. Assessment and plan Chest pain Hyperlipidemia Left wrist pain Monitor vital signs Monitor CBC Monitor CMP Continue telemetry monitoring Ordered d-dimer Ordered 2-D echo Trend troponin Consult cardiology Labs and medication were reviewed.. Continue same treatment. Continue with symptomatic treatment. Resume home medication. Monitor labs and vitals. DVT and GI prophylaxis. Further recommendations as per clinical course of the patient Dictation was produced using [employer] dictation software. please excuse any grammatical, word or spelling errors. 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" History of Any Multi-Drug Resistant Organisms: None Reported Past Surgical History: Section, Cholecystectomy Additional Past Surgical History / Comment(s): rt adrenal gland removal Past Anesthesia/Blood Transfusion Reactions: No Reported Reaction Past Psychological History: No Psychological Hx Reported Smoking Status: Current every day smoker Past Alcohol Use History: None Reported Past Drug Use History: None Reported Medications and Allergies Home Medications Medication Instructions Recorded Confirmed Type Acetaminophen Tab [Tylenol] 500 mg PO BID 02/22/23 02/22/23 History Ibuprofen [Motrin Ib] 200 mg PO BID 02/22/23 02/22/23 History diphenhydrAMINE [Benadryl] 25 mg PO BID 02/22/23 02/22/23 History Aspirin 81 mg PO DAILY #30 tab 02/23/23 Rx Atorvastatin [Lipitor] 20 mg PO HS #30 tab 02/23/23 Rx Diclofenac Sodium Gel [Voltaren 2 gm TOPICAL QID PRN 7 Days #100 gm 02/23/23 Rx Gel] methylPREDNISolone Dose Pack 4 mg PO DIRECTED #1 packet 02/23/23 Rx [Medrol Dose Pack] Allergies Allergy/AdvReac Type Severity Reaction Status Date / Time No Known Allergies Allergy Verified 02/22/23 16:47 Physical Exam Vitals: Vital Signs Temp Pulse Pulse Resp BP BP Pulse Ox 02/23/23 07:50 97.9 F 82 17 112/69 95 02/23/23 03:46 98.3 F 83 17 140/65 95 02/23/23 02:00 83 02/23/23 00:09 97.9 F 84 17 135/63 96 02/22/23 22:37 84 02/22/23 20:57 98.5 F 84 17 125/56 98 02/22/23 20:05 98.2 F 69 16 124/68 98 02/22/23 18:27 88 20 113/73 94 L 02/22/23 15:48 98.7 F 94 20 159/74 95 Intake and Output 02/22/23 02/23/23 02/23/23 22:59 06:59 14:59 Other: Voiding Method Toilet Toilet Toilet # Voids 1 2 Weight 102.058 kg 101.6 kg Results CBC & Chem 7: 02/22/23 16:21 02/22/23 16:21 Labs: Abnormal Lab Results - Last 24 Hours (Table) 02/22/23 02/22/23 Range/Units 16:21 16:21 WBC 10.8 H (3.8-10.6) k/uL Plt Count 147 L (150-450) k/uL Neutrophils # 8.6 H (1.3-7.7) k/uL Sodium 134 L (137-145) mmol/L Glucose 109 H (74-99) mg/dL Thrombosis Risk Factor Assmnt - Choose All That Apply Any of the Below Risk Factors Present?: No Other Risk Factors: Yes Each Risk Factor Represents 2 Points: Age 61-74 years Other congenital or acquired thrombophilia - If yes, enter type in comment: No Thrombosis Risk Factor Assessment Total Risk Factor Score: 2 Thrombosis Risk Factor Assessment Level: Low Risk
[2023-02-23] MEDS ORDERED: ATORVASTATIN 20 MG TAB PO SCH (21:00)
[2023-02-24] MEDS ORDERED: ASPIRIN 81 MG PO SCH (09:00)
--- NOTE | 2023-02-27 09:40 | P.DS ---
Providers Date of admission: 02/22/23 18:46 Expected date of discharge: 02/27/23 Attending physician: Dima Ramos MD Consults: 02/22/23 18:46 Consult Physician Urgent Consulting Provider: [facility] Consult Reason/Comments: Chest pain Do you want consulting provider notified?: Yes Primary care physician: [facility] Course: Discharge diagnoses; Chest pain Hyperlipidemia Left wrist pain Hospital course; patient is 67-year-old lady with past medical history significant for hyperlipidemia presented the ER because of chest pain. Patient stated that she was all right yesterday which started noticing pain in her left arm and left middle finger. That pain was followed by chest pain that was central in location, felt like heaviness, no aggravating or relieving factors associated with this chest pain. Patient was complaining of shortness of breath on exertion, especially on walking. Because of this chest pain or shortness of breath, patient became concerned and came to come to the ER. Denies any palpitations. Denies orthopnea or PND. Denies swelling of feet. Initial lab work done in the ER showed WBC 10.8, hemoglobin 14.5, platelet count 147, sodium 134, potassium 4.2, BUN 8, creatinine 0.70, troponin 0.012. Cholesterol 161, LDL 81 EKG done in the ER showed ventricle rate of 83, no ST segment elevation or T- wave inversion seen. Chest x-ray done in the ER no acute cardiac process Patient admitted to medicine service Patient was evaluated by cardiology, old troponins remained flat, cardiology cleared the patient for discharge. Patient was discharged on Medrol Dosepak for left wrist pain, outpatient follow-up with PCP PHYSICAL EXAMINATION: GENERAL: The patient is alert and oriented x3, not in any acute distress. Well d eveloped, well nourished. HEENT: Pupils are round and equally reacting to light. EOMI. No scleral icterus. No conjunctival pallor. Normocephalic, atraumatic. No pharyngeal erythema. No thyromegaly. CARDIOVASCULAR: S1 and S2 present. No murmurs, rubs, or gallops. PULMONARY: Chest is clear to auscultation, no wheezing or crackles. ABDOMEN: Soft, nontender, nondistended, normoactive bowel sounds. No palpable organomegaly. MUSCULOSKELETAL: No joint swelling or deformity. EXTREMITIES: No cyanosis, clubbing, or pedal edema. NEUROLOGICAL: Gross neurological examination did not reveal any focal deficits. SKIN: No rashes. Dictation was produced using [employer] dictation software. please excuse any grammatical, word or spelling errors. Plan - Discharge Summary Discharge Rx Participant: No New Discharge Prescriptions: New methylPREDNISolone Dose Pack [Medrol Dose Pack] 4 mg PO DIRECTED #1 packet Diclofenac Sodium Gel [Voltaren Gel] 2 gm TOPICAL QID PRN 7 Days #100 gm PRN Reason: Muscle Pain Aspirin 81 mg PO DAILY #30 tab Atorvastatin [Lipitor] 20 mg PO HS #30 tab Continue diphenhydrAMINE [Benadryl] 25 mg PO BID Acetaminophen Tab [Tylenol] 500 mg PO BID Ibuprofen [Motrin Ib] 200 mg PO BID Discontinued Atorvastatin [Lipitor] 10 mg PO HS Discharge Medication List Acetaminophen Tab [Tylenol] 500 mg PO BID 02/22/23 [History] Ibuprofen [Motrin Ib] 200 mg PO BID 02/22/23 [History] diphenhydrAMINE [Benadryl] 25 mg PO BID 02/22/23 [History] Aspirin 81 mg PO DAILY #30 tab 02/23/23 [Rx] Atorvastatin [Lipitor] 20 mg PO HS #30 tab 02/23/23 [Rx] Diclofenac Sodium Gel [Voltaren Gel] 2 gm TOPICAL QID PRN 7 Days #100 gm 02/23/23 [Rx] methylPREDNISolone Dose Pack [Medrol Dose Pack] 4 mg PO DIRECTED #1 packet 02/23/23 [Rx] Follow up Appointment(s)/Referral(s): Jay Hermosillo MD [STAFF PHYSICIAN] - 1 Week (Office will call you with appointment. ) Charley Hines MD [Primary Care Provider] - 1-2 days (Office will not answer. Please schedule your follow up appointment. ) Issa Rodriguez MD [STAFF PHYSICIAN] - 03/01/23 12:30 pm Patient Instructions/Handouts: Chest Pain (DC) Discharge Disposition: HOME SELF-CARE
== END 2023-02-23 16:19 | disposition home or self-care (01) ==
LOC: EC 15:45 → 3SCARD 18:46 → INTOOBSV 18:46 → 3SCARD 19:32
PROVIDERS: ADMIT Internal Medicine; ATTEND Internal Medicine
DX: R07.89 Other chest pain (principal); R06.02 Shortness of breath; E78.5 Hyperlipidemia, unspecified; M25.532 Pain in left wrist; R22.33 Localized swelling, mass and lump, upper limb, bilateral; M79.642 Pain in left hand; M79.641 Pain in right hand; F17.200 Nicotine dependence, unspecified, uncomplicated; I71.43 Infrarenal abdominal aortic aneurysm, without rupture; Z79.1 Long term (current) use of non-steroidal anti-inflammatories (NSAID); Z79.899 Other long term (current) drug therapy; Z90.49 Acquired absence of other specified parts of digestive tract; Z98.890 Other specified postprocedural states
CPT/HCPCS: 96376; 96372; 96374; 96375; 99285; 36415; 94760; 93005; 93306; 85379; 80061; 80053; 83735; 84484; 85025; 85610; 85730; 71046; 71275; G0378; J1644; J2920; Q9967

== ENCOUNTER 2023-05-04 09:22 | Day surgery (SDC) | payer MEDICARE ==
[2023-05-02 10:28] VITALS: BMI 37.9
[~2023-05-04 09:22] MED LIST: LACTATED RINGERS 1,000 ML IV SCH; LIDOCAINE 1% (10MG/ML) FOR IV START INTRADERMA PRN
[2023-05-04] MEDS ORDERED: LACTATED RINGERS 1,000 ML IV ONE (09:50)
[2023-05-04 10:20] VITALS: RESP 18; TEMP 98
[2023-05-04] MEDS ORDERED: PROPOFOL 10 MG/ML 20 ML VIAL IV ONE (10:36)
--- NOTE | 2023-05-04 10:56 | P.PCN ---
Date of Procedure: 05/04/23 Procedure(s) Performed: BRIEF HISTORY: Patient is a 68-year-old pleasant white female scheduled for an elective colonoscopy as a part of evaluation of screening for colon cancer and family history of colon cancer. Her mother and grandmother was diagnosed with colon cancer at 57 and 8 years respectively. PROCEDURE PERFORMED: Colonoscopy with snare polypectomy. PREOPERATIVE DIAGNOSIS: Screening for colon cancer/family history of colon cancer. IV sedation per Anesthesia. PROCEDURE: After informed consent was obtained, the patient, was brought into the endoscopy unit. IV sedation was administered by Anesthesia under continuous monitoring. Digital rectal examination was normal. Initially the Olympus CF-160 flexible video colonoscope was then inserted in the rectum, gradually advanced into the cecum without any difficulty. Careful examination was performed as the scope was gradually being withdrawn. Ileocecal valve and the appendiceal orifice were visualized and appeared normal. Prep was excellent. Mucosa of the cecum, ascending colon, appeared normal. In the transverse colon there was a 5-6 mm polyp that was removed by snare polypectomy. Rest of the transverse colon, descending colon, sigmoid colon, and rectum appeared normal. Retroflexion was performed in the rectum and no lesions were seen. The patient tolerated the procedure well. IMPRESSION: 5-6 mm transverse colon polyp status post polypectomy Rest of the colon appeared normal RECOMMENDATIONS: Findings of this examination were discussed with the patient as well as his family. She was advised to follow with the biopsy results and have a repeat colonoscopy in 5 years because of the family history of colon cancer.
[2023-05-04 11:50] VITALS: BP 103/61; PULSE 73
== END 2023-05-04 11:45 | disposition home or self-care (01) ==
LOC: ORWHC2ENDO 09:22
PROVIDERS: ATTEND Internal Medicine Gastroenterology
DX: Z12.11 Encounter for screening for malignant neoplasm of colon (principal); K63.5 Polyp of colon; I10 Essential (primary) hypertension; I71.40 Abdominal aortic aneurysm, without rupture, unspecified; E78.5 Hyperlipidemia, unspecified; F17.200 Nicotine dependence, unspecified, uncomplicated; Z79.82 Long term (current) use of aspirin; Z79.899 Other long term (current) drug therapy; Z80.0 Family history of malignant neoplasm of digestive organs
CPT/HCPCS: 88305; 45385; J2704

== ENCOUNTER → 2023-12-06 | Outpatient (CLI) | payer MEDICARE ==
--- NOTE | 2023-12-06 17:12 | US ---
EXAMINATION TYPE: US venous doppler duplex LE DATE OF EXAM: 12/06/2023 4:51 PM COMPARISON: NONE CLINICAL INDICATION: Female, 68 years old with history of [id number] LEG SWELLING; Swelling. No hx of DVT. Patient takes aspirin. Swelling x 1 week. SIDE PERFORMED: Bilateral TECHNIQUE: The lower extremity deep venous system is examined utilizing real time linear array sonog robert with graded compression, doppler sonography and color-flow sonography. VESSELS IMAGED: Common Femoral Vein Deep Femoral Vein Greater Saphenous Vein * Femoral Vein Popliteal Vein Small Saphenous Vein * Proximal Calf Veins (* superficial vessels) Right Leg: No evidence of DVT. Left Leg: No evidence of DVT. IMPRESSION:
--- NOTE | 2023-12-06 17:44 | XR ---
EXAMINATION TYPE: XR lumbosacral spine min 4V DATE OF EXAM: 12/06/2023 5:24 PM CLINICAL INDICATION:Female, 68 years old with history of [id number] ACUTE LEFT SIDE LOW BACK PAIN; [facility] COMPARISON: None TECHNIQUE: XR lumbosacral spine min 4V - Frontal, lateral , bilateral oblique and coned in L5-S1 late ral views of the spine. FINDINGS: No evidence of any acute osseous pathology. No evidence of loss of vertebral body height i s seen. There is grade 1 anterolisthesis of L5 on S1 Alignment of the lumbar vertebral bodies. Mild s cattered disc space narrowing. Multilevel marginal osteophyte formation throughout the visualized spi ne. There is facet joint arthropathy throughout the spine. Scattered at least mild neural foraminal s tenosis. Right upper quadrant cholecystectomy clips. Atherosclerosis of the arterial vasculature. IMPRESSION: 1. No acute fracture. 2. Moderate multilevel disc degeneration. 3. Grade 1 anterolisthesis of L5 on S1
--- NOTE | 2023-12-06 17:44 | XR ---
EXAMINATION TYPE: XR chest 2V DATE OF EXAM: 12/06/2023 5:24 PM CLINICAL INDICATION:Female, 68 years old with history of [id number] LEG SWELLING; [facility] COMPARISON: Chest radiographs from 02/22/2023 TECHNIQUE: XR chest 2V Frontal and lateral views of the chest. FINDINGS: Lungs/Pleura: There is no evidence of pleural effusion, focal consolidation, or pneumothorax. Azygou s fissure noted on the right. Pulmonary vascularity: Unremarkable. Heart/mediastinum: Cardiomediastinal silhouette is unremarkable. Musculoskeletal: No acute osseous pathology. Other findings: None IMPRESSION: No acute cardiopulmonary disease/process.
== END | disposition home or self-care (01) ==
LOC: RADUSWWP 16:24
PROVIDERS: ATTEND Family Medicine
DX: M43.17 Spondylolisthesis, lumbosacral region (principal); M51.37 Other intervertebral disc degeneration, lumbosacral region; M79.89 Other specified soft tissue disorders; Z79.82 Long term (current) use of aspirin
CPT/HCPCS: 71046; 72110; 93970

== ENCOUNTER → 2024-02-25 | Outpatient (CLI) | payer MEDICARE ==
--- NOTE | 2024-03-22 18:57 | US ---
Site ID [facility] Margoth Burgos ID [id number] Age/Gender: 68Y, N/A Order # N/A Procedure US abdomen complete Date 02/25/2024 9:11:00 AM EXAMINATION TYPE: US abdomen complete DATE OF EXAM: 03/09/2024 COMPARISON: None, please note PACS Production downtime occurred during the radiologist interpretation of these images with limited priors/reports. CLINICAL INDICATION: 68 year old with history of abdominal pain. TECHNIQUE: Multiple sonographic images of the abdomen are obtained. FINDINGS: EXAM MEASUREMENTS: CBD: 0.3 cm Spleen: 9.8 cm Right Kidney: 11.8 x 3.8 x 4.2 cm Left Kidney: 10.7 x 3.3 x 4.5 cm DINING ROOM CASHIER NOTES: Pancreas: Tail obscured by overlying bowel gas Liver: wnl Gallbladder: Not visualized CBD: wnl Spleen: wnl Right Kidney: wnl Left Kidney: wnl Upper IVC: wnl Abd Aorta: Mid abdominal aorta measures 2.9 x 3.0 cm. The liver is homogenous. The intrahepatic portion of the IVC is within normal limits. Diffuse forami nal dilatation of the midabdominal aorta measuring up to 3.0 cm. The proximal portion measures up to 2.4 cm. The distal portion measures up to 1.6 cm. Gallbladder is not visualized. Common bile duct is unremarkable. The visualized portions of the pancreas are homogenous. The spleen is unremarkable. Kidneys are symmetric and free of hydronephrosis. No renal lesions are seen. IMPRESSION: 1. No ultrasound evidence for acute process. 2. Fusiform infrarenal abdominal aortic aneurysm measuring 3.0 cm. 3. Gallbladder is nonvisualized.
--- NOTE | 2024-04-09 14:10 | CTL ---
EXAMINATION TYPE: CT Low Dose Lung DATE OF EXAM ORDERED: 04/09/2024 HISTORY: Personal history of tobacco use, current smoker, 50 pack-year history. Lung cancer screening CT DLP: 134.[address] CTDI: 3.6 mGy Automated exposure control for dose reduction was used. SCREENING VISIT: Second screening visit COMPARISON: CTA chest 02/23/2023, CT Low Dose Lung 12/07/2022 TECHNIQUE: Low dose computed tomography scan was performed through the chest at 1 mm thick sections a nd reconstructed images in multiple planes at 1 mm and [address] DIAGNOSTIC QUALITY: Satisfactory FINDINGS: Nodules: Stable right upper lobe subpleural 3 mm pulmonary nodule (series 4, image 69). Stable right upper lobe 2 mm subpleural pulmonary nodule (series 4, image 80). Stable right upper lobe lateral 2 mm subpleural pulmonary nodule (series 4, image 125). Stable right lower lobe peripheral 2 mm pulmonary nodule (series 4, image 249). Stable left upper lobe 4 mm pulmonary nodule (series 4, image 116). Stable suspected left intrafissural lymph node versus scarring (series 4, image 78). No suspicious pulmonary nodules or masses. LUNGS: COPD: Severity: Mild Fibrosis: Severity: None Lymph nodes: None Other findings: Incidental azygous fissure. RIGHT PLEURAL SPACE: Effusion: None Calcification: None Thickening: None Pneumothorax: None LEFT PLEURAL SPACE: Effusion: None Calcification: None Thickening: None Pneumothorax: None HEART: Heart Size: Normal Coronary Calcification: Small Pericardial Effusion: None OTHER FINDINGS: Upper abdomen: Postcholecystectomy changes. Surgical clips posterior to the hepatic IVC and within th e anterior abdominal wall in the epigastric region. Bony thorax: None Supraclavicular region: None Other: Moderate atherosclerotic calcification of the aorta and its branches. IMPRESSION: 1. Stable scattered pulmonary nodules measuring up to 4 mm. No new or enlarging pulmonary nodules. 2. Mild COPD changes. CT LUNG RAD AND CT CHEST RECOMMENDATION: Lung-Rad 2 Benign Appearance or Behavior: Continue annual sc reening with LDCT in 12 months. S Modifier (other clinically significant findings): None [facility], Workstation: [employer], 04/09/2024 2:08 PM
== END | disposition home or self-care (01) ==
LOC: RADCTMAIN 12:00
PROVIDERS: ATTEND Family Medicine
DX: M79.89 Other specified soft tissue disorders (principal); M54.50 Low back pain, unspecified; I71.43 Infrarenal abdominal aortic aneurysm, without rupture; J44.9 Chronic obstructive pulmonary disease, unspecified
CPT/HCPCS: 76700

== ENCOUNTER → 2024-04-09 | Outpatient (CLI) | payer MEDICARE ==
--- NOTE | 2024-04-11 08:13 | MM ---
Reason for Exam: Screening (asymptomatic). Last mammogram was performed 1 year(s) and 4 month(s) ago. Patient History: Menarche at age 11. First Full-Term at age 17. Postmenopausal. Patient has history of breast feeding. Maternal aunt had breast cancer. Sister had breast cancer. Risk Values: Imani 5 year model risk: 3.2%. NCI Lifetime model risk: 9.2%. Prior Study Comparison: 03/08/2015 Bilateral Screening Mammogram, [facility]. 12/14/2017 Bilateral Screening Mammogram, [facility]. 11/27/2022 Bilateral MG 3D screening mammo w/cad, [facility]. Tissue Density: The breasts are heterogeneously dense, which may obscure small masses. Findings: Analyzed By CAD. There is no suspicious group of microcalcifications or new suspicious mass in either breast. Benign calcifications. Overall Assessment: Benign, BI-RAD 2 Management: Screening Mammogram of both breasts in 1 year. . Patient should continue monthly self-breast exams. A clinical breast exam by your physician is recommended on an annual basis. This exam should not preclude additional follow-up of suspicious palpable abnormalities. Note on Imani scores and lifetime risk: 1. A Imani score greater than 3% is considered moderate risk. If this is the case, consider specialist referral to assess eligibility for a risk reducing agent. 2. If overall lifetime risk for the development of breast cancer is 20% or higher, the patient may qualify for future screening with alternating mammogram and breast MRI. [facility], , 04/11/2024 8:10 AM. Electronically signed and approved by: Bryce Blackman M.D. Radiologis
== END | disposition home or self-care (01) ==
LOC: RADMAMWWP 12:54
PROVIDERS: ATTEND Family Medicine
DX: Z12.31 Encounter for screening mammogram for malignant neoplasm of breast
CPT/HCPCS: 77063; 77067